=== PATIENT | male | born 1995 | race Caucasian/White ===

== ENCOUNTER 2017-06-11 09:29 | Emergency (ER) | payer BC ==
[2017-06-11] MEDS ORDERED: Ondansetron ODT TAB* 4 MG PO ONE (10:52)
--- NOTE | 2017-06-11 10:52 | UC ---
General HPI - HPI Summary HPI Summary: pt is c/o nausea with vomiting about 7x's since last pm and watery diarrhea this am x1. states passed out in shower for <1 minutes last pm as well but no injury. he was light headed prior to passing out. no cp or sob. no travel hx, antibiotic use or raw sea foods. notes around people with similar s/s's. 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 - History of Current Complaint Chief Complaint: UCGI Stated Complaint: FLU SX'S Time Seen by Provider: 06/11/17 10:46 Hx Obtained From: Patient Onset/Duration: Gradual Onset Timing: Constant Pain Intensity: 0 Aggravating: nothing Alleviating: nothing Associated Signs & Symptoms: Positive: Diarrhea, Fever, Nausea, Vomiting. Negative: Abdominal Pain - Allergy/Home Medications Allergies/Adverse Reactions: Allergies Allergy/AdvReac Type Severity Reaction Status Date / Time Penicillins Allergy Hives Verified 06/11/17 10:26 Home Medications: Home Medications NK [No Home Medications Reported] 06/11/17 [History Confirmed 06/11/17] PMH/Surg Hx/FS Hx/Imm Hx Previously Healthy: Yes - Surgical History Surgical History: None - Social History Occupation: Student Lives: Dormitory/Roommates Alcohol Use: Occasionally Substance Use Type: None Smoking Status (MU): Never Smoked Tobacco - Immunization History Vaccination Up to Date: Yes Review of Systems Constitutional: Fever, Fatigue Skin: Negative Eyes: Negative ENT: Negative Respiratory: Negative Cardiovascular: Negative Gastrointestinal: Vomiting, Diarrhea, Nausea Genitourinary: Negative Motor: Weakness Neurovascular: Negative Musculoskeletal: Negative Neurological: Negative Psychological: Negative Is Patient Immunocompromised?: No All Other Systems Reviewed And Are Negative: Yes Physical Exam Triage Information Reviewed: Yes Appearance: Ill-Appearing - but not toxic Vital Signs: Initial Vital Signs Temp 98 F 06/11/17 10:26 Pulse 120 06/11/17 10:26 Resp 20 06/11/17 10:26 BP 105/62 06/11/17 10:26 Pulse Ox 98 06/11/17 10:26 Vital Signs Reviewed: Yes Eyes: Positive: Conjunctiva Clear ENT: Positive: Pharynx normal, TMs normal. Negative: Nasal congestion, Nasal drainage Neck: Positive: Supple, Nontender, No Lymphadenopathy Respiratory: Positive: Lungs clear, Normal breath sounds Cardiovascular: Positive: No Murmur, Pulses Normal, Tachycardia - 104 Abdomen Description: Positive: Nontender, No Organomegaly, Soft. Negative: Distended, Guarding Bowel Sounds: Positive: Present Musculoskeletal: Positive: ROM Intact Neurological: Positive: Alert, Muscle Tone Normal Psychological: Positive: Age Appropriate Behavior Skin Exam: Other - Slightly pale but warm and dry. No rash. Diagnostics - Laboratory Diagnostic Studies Completed/Ordered: rapid flu=neg. - EKG Cardiac Rate: NL Cardiac Rhythm: Sinus: Normal Ectopy: None ST Segment: Normal - read by Dr Toro Re-Evaluation - Re-Evaluation Second Eval Re-Evaluation Time: 11:41 - pt states his nausea has resolved. he is no longer pale. he has had no v/d here. will trial the po gingerale. Course/Dx - Course Course Of Treatment: ill but non toxic. no acute abdomen, ekg unremarkable and rapid flu = neg. no risk for c-diff colitis or travelers diarrhea. looking much improved during his stay. tx is supportive. i think the transient syncope is from dehydration and vasovagal as pt noted vomiting immediately after. pt taking po fluids during stay. no n/v after. - Differential Dx - Multi-Symptom Provider Diagnoses: vomiting. diarrhea. syncope Discharge - Sign-Out/Discharge Documenting (check all that apply): Discharge - Discharge Plan Condition: Improved Disposition: HOME Patient Education Materials: Syncope (DC), Acute Nausea and Vomiting (ED), Acute Diarrhea (ED) Forms: *Work Release Referrals: Non Staff,Doctor [Primary Care Provider] - Additional Instructions: FOLLOW UP [facility] ON WEDNESDAY(3 DAYS) FOR RECHECK. GO TO ER FOR ANY WORSENING. - Billing Disposition and Condition Condition: IMPROVED Disposition: HOME
[2017-06-11 12:17] VITALS: BP 114/62
== END 2017-06-11 12:19 | disposition home or self-care (01) ==
LOC: UCCORT 09:29
DX: R11.11 Vomiting without nausea (principal); R19.7 Diarrhea, unspecified; R55 Syncope and collapse; Z88.0 Allergy status to penicillin
CPT/HCPCS: 87502; 93005; 99202; A9270-GY; G0463